=== PATIENT | male | born 1955 | race Two or more races ===

== ENCOUNTER 2021-10-10 12:13 | Emergency (ER) | payer MEDICARE, OTHER ==
[~2021-10-10] VITALS: Ht 180.3 cm; Wt 100.2 kg
[2021-10-10] MEDS ORDERED: ACETAMINOPHEN 500 MG TAB PO ONE (12:30)
[2021-10-10] MEDS ORDERED: cefTRIAXone SOD 1,000 MG VL IM ONE (14:00)
[2021-10-10 14:26] VITALS: BP 99/68
== END 2021-10-10 14:43 | disposition home or self-care (01) ==
LOC: ER 12:13
DX: U07.1 COVID-19 (principal); J12.82 Pneumonia due to coronavirus disease 2019
CPT/HCPCS: 71045; 96372; 99285; J0696

== ENCOUNTER 2021-10-13 09:44 | Inpatient (IN) | payer MEDICARE ==
[~2021-10-13] VITALS: Ht 182.9 cm; Wt 105.4 kg
[2021-10-13] MEDS ORDERED: AZITHROMYCIN 500MG/ 250ML 250 ML IV ONE (10:15)
[2021-10-13] MEDS ORDERED: DexAMETHasone SOD PHOS 10MG/1ML VIAL INJ IV ONE (10:15)
[2021-10-13] MEDS ORDERED: cefTRIAXone 1GM/50ML D5W 50 ML IV ONE (10:15)
[2021-10-13 10:29] LABS: Basophils # (auto) 0 10 ^3/uL (0-0.2); Basophils % (auto) 1.1 % (0.0-2.0); Eosinophils # (auto) 0 10 ^3/uL (0-0.8); Eosinophils % (auto) 0.2 % (0.0-7.0); Hematocrit 42.8 % (41.0-53.0); Hemoglobin 13.4 g/dL (13.5-17.5); Lymphocytes # (auto) 0.6 10 ^3/uL (0.4-5.4); Mean Corpuscular Hemoglobin 24.6 pg (28.0-32.0); Mean Corpuscular Hgb Conc. 31.4 g/dL (32.0-36.0); Mean Corpuscular Volume 78.4 fL (80.0-100.0); Monocytes # (auto) 0.2 10 ^3/uL (0-1.3); Monocytes % (auto) 5.5 % (0.0-12.0); Neutrophils # (auto) 2.9 10 ^3/uL (1.6-8.6); Neutrophils % (auto) 76.2 % (37.0-80.0); Nucleated Red Blood Cells % 0.3 %; Red Blood Cells 5.46 10^6/uL (4.5-5.90); Red Cell Distribution Width 16.7 % (11.8-14.3); White Blood Cell 3.8 10^3/uL (4.4-10.8)
[2021-10-13 10:54] LABS: Calcium 7.9 mg/dL (8.5-10.1)
[2021-10-13 10:56] LABS: BUN/Creatinine Ratio 19.4; Bilirubin, Total 0.6 mg/dL (0.2-1.0); Total Protein 6.7 g/dL (6.4-8.2)
[2021-10-13] MEDS ORDERED: HYDROcodone-ACET 5/325MG TAB PO PRN (14:30)
[2021-10-13] MEDS ORDERED: ONDANSETRON HCL 4 MG/2 ML VIAL IV PRN (14:30)
[2021-10-13] MEDS ORDERED: LORazepam 0.5 MG TAB PO PRN (14:30)
[2021-10-13] MEDS ORDERED: ACETAMINOPHEN 325 MG TAB PO PRN (14:30)
[2021-10-13] MEDS ORDERED: NITROGLYCERIN 0.4 MG SL TAB SL PRN (14:30)
[2021-10-13] MEDS ORDERED: DOCUSATE SOD 100 MG CAP PO PRN (14:30)
[2021-10-13] MEDS ORDERED: MORPHINE SULFATE INJECTION 2 MG/ML SYRG IV PRN ×2 (14:30)
[2021-10-13] MEDS: SODIUM CHLORIDE 0.9% 1,000 ML IV SCH ×3 (14:42→23:00)
[2021-10-13 15:55] LABS: Cholesterol 84 mg/dL (< 200)
[2021-10-13 15:58] LABS: HDL Cholesterol 40 mg/dL (40-59); LDL Cholesterol 39 mg/dL (< 100); Triglycerides 56 mg/dL (< 150)
[2021-10-13] MEDS: BUDESONIDE (INHALATION) 0.5 MG/2 ML NEB NEB SCH (22:00)
[2021-10-13] MEDS: ENOXAPARIN SOD 40 MG/0.4 ML SYRINGE SC SCH (22:00)
[2021-10-13 22:35] VITALS: BP 126/76
[2021-10-13] MEDS ORDERED: AZIT500T66 PO (23:28)
[2021-10-13] MEDS ORDERED: BENZ200C64 PO (23:28)
[2021-10-14 01:12] LABS: Urine Bacteria FEW /hpf (None Seen); Urine Blood Negative /uL (Negative); Urine Mucus FEW (None Seen); Urine Specific Gravity 1.028 (1.001-1.035); Urine WBC 4 /hpf (0 - 3)
[2021-10-14 05:04] VITALS: BP 123/77
[2021-10-14 05:44] LABS: Hemoglobin 12.2 g/dL (13.5-17.5); White Blood Cell 4.7 10^3/uL (4.4-10.8)
[2021-10-14 05:48] LABS: Basophils # (auto) 0 10 ^3/uL (0-0.2); Basophils % (auto) 0.2 % (0.0-2.0); Eosinophils # (auto) 0 10 ^3/uL (0-0.8); Hematocrit 37.7 % (41.0-53.0); Lymphocytes # (auto) 0.6 10 ^3/uL (0.4-5.4); Lymphocytes % (auto) 12.5 % (10.0-50.0); Mean Corpuscular Hemoglobin 25.1 pg (28.0-32.0); Mean Corpuscular Hgb Conc. 32.3 g/dL (32.0-36.0); Mean Corpuscular Volume 77.5 fL (80.0-100.0); Monocytes # (auto) 0.3 10 ^3/uL (0-1.3); Monocytes % (auto) 7.2 % (0.0-12.0); Neutrophils # (auto) 3.8 10 ^3/uL (1.6-8.6); Neutrophils % (auto) 80.1 % (37.0-80.0); Nucleated Red Blood Cells % 0.1 %; Red Blood Cells 4.86 10^6/uL (4.5-5.90); Red Cell Distribution Width 16.7 % (11.8-14.3)
[2021-10-14 06:03] LABS: Potassium 4.4 mmol/L (3.5-5.1)
[2021-10-14 06:10] LABS: Albumin 2.6 g/dL (3.4-5.0); BUN/Creatinine Ratio 28.4; Calcium 7.9 mg/dL (8.5-10.1)
[2021-10-14 06:13] LABS: Bilirubin, Total 0.4 mg/dL (0.2-1.0); Total Protein 5.9 g/dL (6.4-8.2)
[2021-10-14] MEDS: ALBUTEROL SULF 2.5 MG/0.5ML(0.5%) NEB SOLN NEB PRN ×2 (06:50→23:07)
[2021-10-14] MEDS: BUDESONIDE (INHALATION) 0.5 MG/2 ML NEB NEB SCH ×2 (06:50→23:07)
[2021-10-14] MEDS: IPRATROPIUM BROM 0.5 MG/2.5ML INH SOL NEB PRN ×2 (06:50→23:07)
[2021-10-14 08:00] VITALS: BP 138/75
[2021-10-14 09:00] VITALS: BP 138/75
[2021-10-14] MEDS: cefTRIAXone 1GM/50ML D5W 50 ML IV SCH (09:58)
[2021-10-14] MEDS: ASCORBIC ACID 500 MG TAB PO SCH (09:59)
[2021-10-14] MEDS: CHOLECALCIFEROL (VITD3) 2,000 UNIT CAP/TAB PO SCH (09:59)
[2021-10-14] MEDS: ZINC SULFATE 220mg CAP or TAB PO SCH (10:00)
[2021-10-14] MEDS: ENOXAPARIN SOD 40 MG/0.4 ML SYRINGE SC SCH ×2 (10:02→22:01)
[2021-10-14] MEDS: AZITHROMYCIN 500MG/ 250ML 250 ML IV SCH (10:52)
[2021-10-14] MEDS ORDERED: REMDESIVIR PER PHARMACY 0 ML IV SCH (11:30)
[2021-10-14] MEDS ORDERED: DexAMETHasone SOD PHOS 10MG/1ML VIAL INJ IV ONE (11:30)
[2021-10-14 13:00] VITALS: BP 125/69
[2021-10-14] MEDS ORDERED: REMDESIVIR 200 MG in NS 210ml LOADING DOSE ADULT IV ONE (15:00)
[2021-10-14 17:00] VITALS: BP 138/75
[2021-10-14] MEDS ORDERED: guaiFENesin-DM 100/10mg/5ml SYR PO PRN (20:15)
[2021-10-14 22:00] VITALS: BP 127/61
[2021-10-15 05:00] VITALS: BP 138/68
[2021-10-15 06:11] LABS: Basophils # (auto) 0 10 ^3/uL (0-0.2); Eosinophils # (auto) 0 10 ^3/uL (0-0.8); Lymphocytes # (auto) 0.5 10 ^3/uL (0.4-5.4); Mean Corpuscular Volume 76.7 fL (80.0-100.0); Monocytes # (auto) 0.4 10 ^3/uL (0-1.3); Neutrophils # (auto) 3.8 10 ^3/uL (1.6-8.6)
[2021-10-15 06:14] LABS: Basophils % (auto) 0.2 % (0.0-2.0); Hematocrit 34.9 % (41.0-53.0); Hemoglobin 11.7 g/dL (13.5-17.5); Lymphocytes % (auto) 10.4 % (10.0-50.0); Mean Corpuscular Hemoglobin 25.6 pg (28.0-32.0); Mean Corpuscular Hgb Conc. 33.4 g/dL (32.0-36.0); Monocytes % (auto) 8.2 % (0.0-12.0); Neutrophils % (auto) 81.2 % (37.0-80.0); Red Blood Cells 4.55 10^6/uL (4.5-5.90); Red Cell Distribution Width 16.4 % (11.8-14.3); White Blood Cell 4.6 10^3/uL (4.4-10.8)
[2021-10-15 06:33] LABS: Albumin 2.6 g/dL (3.4-5.0); Calcium 7.9 mg/dL (8.5-10.1); Potassium 4.5 mmol/L (3.5-5.1)
[2021-10-15 06:36] LABS: BUN/Creatinine Ratio 31.6
[2021-10-15 06:37] LABS: Bilirubin, Total 0.3 mg/dL (0.2-1.0); Total Protein 5.9 g/dL (6.4-8.2)
[2021-10-15 09:00] VITALS: BP 129/73
[2021-10-15] MEDS: IPRATROPIUM BROM 0.5 MG/2.5ML INH SOL NEB PRN ×2 (09:42→22:05)
[2021-10-15] MEDS: ALBUTEROL SULF 2.5 MG/0.5ML(0.5%) NEB SOLN NEB PRN ×2 (09:42→22:05)
[2021-10-15] MEDS: BUDESONIDE (INHALATION) 0.5 MG/2 ML NEB NEB SCH ×2 (09:43→22:05)
[2021-10-15] MEDS: cefTRIAXone 1GM/50ML D5W 50 ML IV SCH (09:47)
[2021-10-15] MEDS: ASCORBIC ACID 500 MG TAB PO SCH (09:54)
[2021-10-15] MEDS: ZINC SULFATE 220mg CAP or TAB PO SCH (09:55)
[2021-10-15] MEDS: CHOLECALCIFEROL (VITD3) 2,000 UNIT CAP/TAB PO SCH (09:55)
[2021-10-15] MEDS: FUROSEMIDE 20 MG TAB PO SCH (09:56)
[2021-10-15] MEDS: ENOXAPARIN SOD 40 MG/0.4 ML SYRINGE SC SCH ×2 (10:00→21:24)
[2021-10-15] MEDS: DexAMETHasone SOD PHOS 10MG/1ML VIAL INJ IV SCH (10:02)
[2021-10-15] MEDS: AZITHROMYCIN 500MG/ 250ML 250 ML IV SCH (11:00)
[2021-10-15 13:00] VITALS: BP 137/83
[2021-10-15] MEDS: REMDESIVIR 100mg 100 MG in SODIUM CHL 0.9% 230 ML IV SCH (15:02)
[2021-10-15 16:54] VITALS: BP 118/74
[2021-10-15 21:30] VITALS: BP 125/78
[2021-10-16 04:43] VITALS: BP 121/70
[2021-10-16] MEDS: IPRATROPIUM BROM 0.5 MG/2.5ML INH SOL NEB PRN (06:20)
[2021-10-16] MEDS: BUDESONIDE (INHALATION) 0.5 MG/2 ML NEB NEB SCH ×2 (06:20→20:24)
[2021-10-16] MEDS: ALBUTEROL SULF 2.5 MG/0.5ML(0.5%) NEB SOLN NEB PRN ×2 (06:20→20:24)
[2021-10-16 07:18] LABS: Albumin 2.5 g/dL (3.4-5.0); BUN/Creatinine Ratio 26.3; Calcium 7.7 mg/dL (8.5-10.1); Potassium 4.4 mmol/L (3.5-5.1)
[2021-10-16 07:20] LABS: Bilirubin, Total 0.3 mg/dL (0.2-1.0); Total Protein 5.4 g/dL (6.4-8.2)
[2021-10-16 09:00] VITALS: BP 120/63
[2021-10-16] MEDS: ENOXAPARIN SOD 40 MG/0.4 ML SYRINGE SC SCH ×2 (10:00→20:49)
[2021-10-16] MEDS: CHOLECALCIFEROL (VITD3) 2,000 UNIT CAP/TAB PO SCH (10:46)
[2021-10-16] MEDS: cefTRIAXone 1GM/50ML D5W 50 ML IV SCH (10:46)
[2021-10-16] MEDS: ASCORBIC ACID 500 MG TAB PO SCH (10:46)
[2021-10-16] MEDS: ZINC SULFATE 220mg CAP or TAB PO SCH (10:46)
[2021-10-16] MEDS: DexAMETHasone SOD PHOS 10MG/1ML VIAL INJ IV SCH (10:46)
[2021-10-16] MEDS: FUROSEMIDE 20 MG TAB PO SCH (10:49)
[2021-10-16] MEDS: AZITHROMYCIN 500MG/ 250ML 250 ML IV SCH (12:31)
[2021-10-16 13:00] VITALS: BP 115/73
[2021-10-16] MEDS: REMDESIVIR 100mg 100 MG in SODIUM CHL 0.9% 230 ML IV SCH (15:14)
[2021-10-16 17:00] VITALS: BP 130/68
[2021-10-16 22:00] VITALS: BP 126/70
[2021-10-17 05:00] VITALS: BP 118/70
[2021-10-17 06:48] LABS: Albumin 2.4 g/dL (3.4-5.0); Calcium 7.5 mg/dL (8.5-10.1); Potassium 4.3 mmol/L (3.5-5.1)
[2021-10-17 06:53] LABS: BUN/Creatinine Ratio 23.7; Bilirubin, Total 0.4 mg/dL (0.2-1.0); Total Protein 5.5 g/dL (6.4-8.2)
[2021-10-17] MEDS: BUDESONIDE (INHALATION) 0.5 MG/2 ML NEB NEB SCH ×2 (08:01→23:08)
[2021-10-17 08:45] VITALS: BP 122/68
[2021-10-17] MEDS: cefTRIAXone 1GM/50ML D5W 50 ML IV SCH (08:55)
[2021-10-17] MEDS: DexAMETHasone SOD PHOS 10MG/1ML VIAL INJ IV SCH (08:55)
[2021-10-17] MEDS: ZINC SULFATE 220mg CAP or TAB PO SCH (08:56)
[2021-10-17] MEDS: CHOLECALCIFEROL (VITD3) 2,000 UNIT CAP/TAB PO SCH (08:56)
[2021-10-17] MEDS: FUROSEMIDE 20 MG TAB PO SCH (08:56)
[2021-10-17] MEDS: ASCORBIC ACID 500 MG TAB PO SCH (08:56)
[2021-10-17] MEDS: ENOXAPARIN SOD 40 MG/0.4 ML SYRINGE SC SCH ×2 (08:56→22:50)
[2021-10-17] MEDS: AZITHROMYCIN 500MG/ 250ML 250 ML IV SCH (13:06)
[2021-10-17 13:35] VITALS: BP 149/77
[2021-10-17] MEDS: REMDESIVIR 100mg 100 MG in SODIUM CHL 0.9% 230 ML IV SCH (15:15)
[2021-10-17 17:03] VITALS: BP 115/72
[2021-10-17 21:58] VITALS: BP 125/66
[2021-10-17] MEDS: ALBUTEROL SULF 2.5 MG/0.5ML(0.5%) NEB SOLN NEB PRN (23:08)
[2021-10-17] MEDS: IPRATROPIUM BROM 0.5 MG/2.5ML INH SOL NEB PRN (23:08)
[2021-10-18 05:10] VITALS: BP 123/74
[2021-10-18] MEDS: ALBUTEROL SULF 2.5 MG/0.5ML(0.5%) NEB SOLN NEB PRN ×2 (05:40→07:52)
[2021-10-18] MEDS: BUDESONIDE (INHALATION) 0.5 MG/2 ML NEB NEB SCH ×2 (05:40→07:51)
[2021-10-18 05:50] LABS: Albumin 2.4 g/dL (3.4-5.0); BUN/Creatinine Ratio 25.3; Calcium 8.1 mg/dL (8.5-10.1); Potassium 4.4 mmol/L (3.5-5.1)
[2021-10-18 05:53] LABS: Bilirubin, Total 0.5 mg/dL (0.2-1.0); Total Protein 5.4 g/dL (6.4-8.2)
[2021-10-18 07:31] VITALS: BP 128/71
[2021-10-18] MEDS: IPRATROPIUM BROM 0.5 MG/2.5ML INH SOL NEB PRN (07:52)
[2021-10-18] MEDS ORDERED: FUR20T PO (08:11)
[2021-10-18] MEDS ORDERED: ASCO500T11 PO (08:11)
[2021-10-18] MEDS ORDERED: RIVA10TA PO (08:11)
[2021-10-18] MEDS ORDERED: CHOL1CAP47 PO (08:11)
[2021-10-18] MEDS ORDERED: ZINC220T6 PO (08:11)
[2021-10-18] MEDS ORDERED: DEXT1SYP9 PO (08:11)
[2021-10-18] MEDS ORDERED: DEX4T PO (08:11)
[2021-10-18 08:49] VITALS: BP 128/71
[2021-10-18] MEDS: cefTRIAXone 1GM/50ML D5W 50 ML IV SCH (10:27)
[2021-10-18] MEDS: ENOXAPARIN SOD 40 MG/0.4 ML SYRINGE SC SCH (10:27)
[2021-10-18] MEDS: CHOLECALCIFEROL (VITD3) 2,000 UNIT CAP/TAB PO SCH (10:28)
[2021-10-18] MEDS: ASCORBIC ACID 500 MG TAB PO SCH (10:28)
[2021-10-18] MEDS: ZINC SULFATE 220mg CAP or TAB PO SCH (10:28)
[2021-10-18] MEDS: DexAMETHasone SOD PHOS 10MG/1ML VIAL INJ IV SCH (10:28)
[2021-10-18] MEDS: FUROSEMIDE 20 MG TAB PO SCH (10:36)
[2021-10-18] MEDS: AZITHROMYCIN 500MG/ 250ML 250 ML IV SCH (11:37)
[2021-10-18 13:00] VITALS: BP 121/64
[2021-10-18] MEDS: REMDESIVIR 100mg 100 MG in SODIUM CHL 0.9% 230 ML IV SCH (14:43)
[2021-10-18 16:02] VITALS: BP 121/64
[2021-10-18 17:00] VITALS: BP 136/71
== END 2021-10-18 17:00 | disposition home or self-care (01) | DRG 177 ==
LOC: ER 09:44 → TELE 14:20 → TELE-EAST 22:34
PROVIDERS: ADMIT Family Medicine; ATTEND Internal Medicine
PROC: XW033E5 Introduction of Remdesivir Anti-infective into Peripheral Vein, Percutaneous Approach, New Technology Group 5 (ICD-10-PCS; principal; 2021-10-14)
DX: U07.1 COVID-19 (principal); J12.82 Pneumonia due to coronavirus disease 2019; J96.01 Acute respiratory failure with hypoxia; E66.9 Obesity, unspecified; E88.09 Other disorders of plasma-protein metabolism, not elsewhere classified; D89.839 Cytokine release syndrome, grade unspecified; Z68.30 Body mass index [BMI] 30.0-30.9, adult
CPT/HCPCS: 36415; 71045; 80053; 80061; 81001; 82728; 83036; 83615; 84443; 84484; 85025; 85379; 86141; 87040; 87426; 93005; 94640; 96372; G0378; J0696; J1100; J2405

== ENCOUNTER 2024-11-20 07:34 | Emergency (ER) | payer BC, MEDICARE, OTHER ==
[~2024-11-20] VITALS: Ht 180.3 cm; Wt 104.1 kg
[~2024-11-20 07:34] MED LIST: ASCO500T11 PO; BENZ200C64 PO; CHOL1CAP47 PO; DEX4T PO; DEXT1SYP9 PO; FURO20TA4 PO; RIVA10TA PO; ZINC220T6 PO
[2024-11-20 08:31] VITALS: BP 149/89; PULSE 96; RESP 18; TEMP 98.2; O2SAT 98
--- NOTE | 2024-11-20 08:34 | ED.PDOC ---
History of Present Illness HPI Comments This is a 68 year old male with swelling to his nose that started Thursday. Thought it was a pimple, tried to squeeze it, nothing came out, now with increased redness, pain and swelling. No drainage noted.no fever, no headache, no chills. Chief Complaint: Face pain Time Seen by MD: 08:28 Primary Care Provider: malissa Jackson Notes: Nurses Notes, Medications, Allergies Allergies: Coded Allergies: NO KNOWN ALLERGIES (Unverified , 09/18/10) Home Meds Active Scripts Rivaroxaban (XARELTO) 10 Mg Tab, 1 TAB PO DAILY, #30 TAB for DVT prophylaxis after COVID, watch for signs of bleeding Prov:FAY ORTEGA MD 10/18/21 Dexamethasone (Decadron) 4 Mg Tb, 6 MG PO DAILY for 4 Days, #6 TAB Prov:FAY ORTEGA MD 10/18/21 Zinc Sulfate (Zinc Sulfate) 220 Mg Tab, 220 MG PO DAILY for 30 Days, #30 TAB Prov:FAY ORTEGA MD 10/18/21 Furosemide (Furosemide) 20 Mg Tab, 20 MG PO DAILY for 5 Days, #5 TAB Prov:FAY ORTEGA MD 10/18/21 Dextromethorphan-Guaifenesin (Robitussin-Dm) 10 Ml Sr, 10 ML PO Q4HP PRN, #200 ML Prov:FAY ORTEGA MD 10/18/21 Cholecalciferol (Vitamin D3 Super Strength) 2,000 Unit Cap, 4000 UNIT PO DAILY for 30 Days, #60 CAP Prov:FAY ORTEGA MD 10/18/21 Ascorbic Acid (VITAMIN C TABLET) 500 Mg Tb, 500 MG PO DAILY for 30 Days, #30 TAB Prov:FAY ORTEGA MD 10/18/21 Reported Medications Benzonatate (Benzonatate) 200 Mg Cap, 1 CAP PO TID 10/13/21 Information Source: Patient Mode of Arrival: Ambulatory Past Medical History PAST MEDICAL HISTORY: Denies Past Medical History (Other): colon cancer Surgical History: Denies all surgeries Surgical History (Other): Colon resection Family History Family History: Reviewed,noncontributory to illness Social History Smoker: Non-Smoker Alcohol: Denies ETOH Use Drugs: Denies Drug Use Lives In: Home EENTM: reports: nose pain, others (nasal redness and swelling) Physical Exam General Appearance: No Apparent Distress HEENT: PERRL/EOMI, Pharyngeal Erythema, Pharynx Normal, NOT DONE (nose with swelling and redness, no drainage) Neck: Non-Tender, Normal Inspection, Supple Respiratory: Lungs Clear Cardiovascular: Regular Rate/Rhythm Breast Exam: Deferred Gastrointestinal: Non Tender, Soft Genitalia: Deferred Pelvic: Deferred Rectal: Deferred Extremities: Normal inspection, Normal range of motion, Non-tender Neurologic: Alert, No Motor Deficits, Normal Affect, Normal Mood Cerebellar Function: Normal Reflexes: NOT DONE Skin: Dry, Warm Lymphatic: No Adenopathy Was a procedure done? Was a procedure done?: No Differential Dx Considerations may include: cellulitis vs abcess X-Ray, Labs, Meds, VS Vital Signs Date Time Temp Pulse Resp B/P (MAP) Pulse Ox O2 Delivery O2 Flow Rate FiO2 11/20/24 08:31 96 18 98 Room Air 11/20/24 08:31 98.2 96 18 149/89 (109) 98 98.2 11/20/24 07:48 98.2 98 18 149/89 (109) 96 X-Ray, Labs, Meds, VS Comment Patient seen and examined by me. With cellulitis of the nose. Will give Rocephin here and send home with Bactrim DS. Instructed to apply heat to help drain. No indication to drain here in the ER. If redness and swelling are worse he will need to come back for IV antibiotics. Time of 1ST Reevaluation: 08:54 Reevaluation 1ST: Improved Patient Education/Counseling: Diagnosis, Treatment, Prognosis, Need For Follow Up Family Education/Counseling: Diagnosis, Treatment, Prognosis, Need For Follow Up Departure 1 Departure Time of Disposition: 08:54 Impression: Primary Impression: Cellulitis of nose Disposition: 01 HOME / SELF CARE / HOMELESS Condition: Good Additional Instructions: Start antibiotics in the morning Okay to apply heat to help drain If you notice increased redness or swelling after meds have started come back you will need IV antibiotics Motrin okay of pain e-Prescriptions Ibuprofen Micronized (Ibuprofen) 600 Mg Tab 600 MG PO Q6HPRN PRN for 5 Days, #20 TAB Prov: CHRYSTAL MCCAIN METHODS ANALYST 11/20/24 Sulfamethoxazole W/Trimethopri (Bactrim Ds Tablet) 1 Tab Tb 1 TAB PO BID for 7 Days, #14 TAB Prov: CHRYSTAL MCCAIN 11/20/24 Critical Care Note Critical Care Time?: No Stability Stability form required: No CHRYSTAL MCCAIN Nov 20, 2024 08:34
[2024-11-20] MEDS: cefTRIAXone W LIDOCAINE 1 GM IM IM ONE (08:44)
[2024-11-20] MEDS: cefTRIAXone SOD 1,000 MG VL IM ONE (08:52)
[2024-11-20] MEDS ORDERED: IBUP1TAB5 PO (08:57)
[2024-11-20] MEDS ORDERED: BACDST PO (08:57)
== END 2024-11-20 09:04 | disposition home or self-care (01) ==
LOC: ER 07:34
DX: J34.0 Abscess, furuncle and carbuncle of nose (principal); Z85.038 Personal history of other malignant neoplasm of large intestine
CPT/HCPCS: 96372; 99283; J0696

== ENCOUNTER 2024-12-15 11:40 | Emergency (ER) | payer OTHER ==
[~2024-12-15] VITALS: Ht 180.3 cm; Wt 106.7 kg
[~2024-12-15 11:40] MED LIST changes: +BACDST PO; +IBUP1TAB5 PO
[2024-12-15 12:35] VITALS: BP 153/100; PULSE 100; RESP 18; TEMP 98; O2SAT 96
--- NOTE | 2024-12-15 13:02 | ED.PDOC ---
History of Present Illness(SKN HPI Comments A 68 YEAR OLD MALE PRESENTS TO THE ED WITH CHIEF COMPLAINT OF REDNESS OF NOSE. PATIENT REPORTS THAT HE HAS BEEN EXPERIENCING SPONTANEOUS REDNESS, SWELLING, AND PAIN OF HIS NOSE SINCE YESTERDAY. PATIENT RELAYS THAT HE HAD SIMILAR SYMPTOMS ON 11/20/24 AND WAS DIAGNOSED WITH A SKIN INFECTION OF THE NOSE, NEEDING ANTIBIOTICS AT HOME TO TREAT IT, BUT NOW IT IS COMING BACK. PATIENT DENIES ANY DISCHARGE, BLEEDING, FACIAL PAIN, DIZZINESS, OR HEADACHE. Chief Complaint: Rash Time Seen by MD: 12:58 Primary Care Provider: JOEL History of Present Illness: Nurses Notes, Medications, Allergies Allergies: Coded Allergies: NO KNOWN ALLERGIES (Unverified , 09/18/10) Home Meds Active Scripts Ibuprofen Micronized (Ibuprofen) 600 Mg Tab, 600 MG PO Q6HPRN PRN for 5 Days, #20 TAB Prov:CHRYSTAL MCCAIN RECONCILIATION COORDINATOR 11/20/24 Sulfamethoxazole W/Trimethopri (Bactrim Ds Tablet) 1 Tab Tb, 1 TAB PO BID for 7 Days, #14 TAB Prov:CHRYSTAL MCCAIN [facility] 11/20/24 Rivaroxaban (XARELTO) 10 Mg Tab, 1 TAB PO DAILY, #30 TAB for DVT prophylaxis after COVID, watch for signs of bleeding Prov:FAY ORTEGA MD 10/18/21 Dexamethasone (Decadron) 4 Mg Tb, 6 MG PO DAILY for 4 Days, #6 TAB Prov:FAY ORTEGA MD 10/18/21 Zinc Sulfate (Zinc Sulfate) 220 Mg Tab, 220 MG PO DAILY for 30 Days, #30 TAB Prov:FAY ORTEGA MD 10/18/21 Furosemide (Furosemide) 20 Mg Tab, 20 MG PO DAILY for 5 Days, #5 TAB Prov:FAY ORTEGA MD 10/18/21 Dextromethorphan-Guaifenesin (Robitussin-Dm) 10 Ml Sr, 10 ML PO Q4HP PRN, #200 ML Prov:FAY ORTEGA MD 10/18/21 Cholecalciferol (Vitamin D3 Super Strength) 2,000 Unit Cap, 4000 UNIT PO DAILY for 30 Days, #60 CAP Prov:FAY ORTEGA MD 10/18/21 Ascorbic Acid (VITAMIN C TABLET) 500 Mg Tb, 500 MG PO DAILY for 30 Days, #30 TAB Prov:FAY ORTEGA MD 10/18/21 Reported Medications Benzonatate (Benzonatate) 200 Mg Cap, 1 CAP PO TID 10/13/21 Information Source: Patient Mode of Arrival: Ambulatory Severity: Moderate Timing: Days Duration: Since onset Prehospital treatment: None Location: Nose Mechanism: Spontaneous Onset Developed: Rash Object: None Condition of Object: None Retained Foreign Body: No Wound Type: Unknown Immunization Status of Animal: NA Tetanus: UTD, Unknown History of: None Associated Signs and Symptoms: Redness, Swelling, Pain Past Medical History PAST MEDICAL HISTORY: Denies Surgical History: Denies all surgeries Family History Family History: Reviewed,noncontributory to illness Social History Smoker: Non-Smoker Alcohol: Denies ETOH Use Drugs: Denies Drug Use Lives In: Home Constitutional: denies: chills, diaphoresis, fatigue, fever, malaise, sweats, weakness, others EENTM: reports: others (NOSE REDNESS AND SWELLING); denies: blurred vision, double vision, ear bleeding, ear discharge, ear drainage, ear pain, ear ringing, eye pain, eye redness, hearing loss, mouth pain, mouth swelling, nasal discharge, nose bleeding, nose congestion, nose pain, photophobia, tearing, throat pain, throat swelling, voice changes Respiratory: denies: cough, hemoptysis, orthopnea, SOB at rest, shortness of breath, SOB with excertion, stridor, wheezing, others Cardiovascular: denies: chest pain, dizzy spells, diaphoresis, Dyspnea on exertion, edema, irregular heart beat, left arm pain, lightheadedness, palpitations, PND, syncope, others Gastrointestinal: denies: abdomen distended, abdominal pain, blood streaked bowels, constipated, diarrhea, dysphagia, difficulty swallowing, hematemesis, melena, nausea, poor appetite, poor fluid intake, rectal bleeding, rectal pain, vomiting, others Genitourinary: denies: burning, dysuria, flank pain, frequency, hematuria, incontinence, penile discharge, penile sore, pain, testicle pain, testicle swelling, urgency, others Neurological: denies: dizziness, fainting, headache, left sided numbness, left sided weakness, numbness, paresthesia, pre-existing deficit, right sided numbness, right sided weakness, seizure, speech problems, tingling, tremors, weakness, others Musculoskeletal: denies: back pain, gout, joint pain, joint swelling, muscle pain, muscle stiffness, neck pain, others Integumetry: reports: lumps (ANTERIOR TIP OF NOSE. ); denies: bruises, change in color, change in hair/nails, dryness, laceration, lesions, rash, wounds, others Allergic/Immunocompromised: denies: Difficulty Healing, Frequent Infections, Hives, Itching, others Hematologic/Lymphatic: denies: anemia, blood clots, easy bleeding, easy bruising, swollen glands, others Endocrine: denies: excessive hunger, excessive sweating, excessive thirst, excessive urination, flushing, intolerance to cold, intolerance to heat, unexplained weight gain, unexplained weight loss, others Psychiatric: denies: anxiety, bipolar disorder, depression, hopeless, panic disorder, schizophrenia, sleepless, suicidal, others All Other Systems: Reviewed and Negative Physical Exam General Appearance: No Apparent Distress, Normal HEENT: Normal ENT Inspection, PERRL/EOMI, Other (REDNESS AND MILD SWELLING ON ANTERIOR NOSE TIP. ) Neck: Full Range of Motion, Non-Tender, Normal, Normal Inspection Respiratory: Chest Non-Tender, Lungs Clear, No Accessory Muscle Use, No Respiratory Distress, Normal Breath Sounds Cardiovascular: No Edema, No JVD, No Murmur, No Gallop, Normal Peripheral Pulses, Regular Rate/Rhythm Breast Exam: Deferred Gastrointestinal: No Organomegaly, Non Tender, No Pulsatile Mass, Normal Bowel Sounds, Soft Genitalia: Deferred Pelvic: Deferred Rectal: Deferred Extremities: No calf tenderness, Normal capillary refill, Normal inspection, Normal range of motion, Non-tender, No pedal edema Musculoskeletal : Apperance: Normal Neurologic: Alert, assistant executive housekeeper II-XII nml as Tested, No Motor Deficits, Normal Affect, Normal Mood, No Sensory Deficits Cerebellar Function: Normal Reflexes: Normal Skin: Dry, Warm, Other (A PIMPLE WITH LOCALIZED REDNESS, TENDERNESS AND MILD SWELLING ON ANTERIOR NOSE, NO OPEN WOUND SEEN. ) Peripheral Pulses: 2+ carotid (R), 2+ carotid (L) Lymphatic: No Adenopathy Was a procedure done? Was a procedure done?: No Differential Diagnosis (INTG) Differential Diagnosis: Abscess, Cellulitis Abscess: Felon, Other (SOFT TISSUE INFECTION OF NOSE ) X-Ray, Labs, Meds, VS Vital Signs Date Time Temp Pulse Resp B/P (MAP) Pulse Ox O2 Delivery O2 Flow Rate FiO2 12/15/24 12:35 100 18 96 Room Air 12/15/24 12:35 98.0 100 18 153/100 (117) 96 98.0 12/15/24 11:56 98.0 100 18 153/100 (117) 96 151/101 (118) Current Medications Medications (Trade) Dose Ordered Sig/Devin Route Start Time Stop Time Status Last Admin Ceftriaxone Sodium (Rocephin) 1,000 mg ONCE ONCE IM 12/15/24 13:00 12/15/24 13:01 DC 12/15/24 13:09 X-Ray, Labs, Meds, VS Comment EXTERNAL MEDICAL RECORDS REVIEWED: 11/20/24 FOR CELLULITIS OF NOSE INDEPENDENT HISTORIANS: [NONE] SOCIAL DETERMINANTS OF HEALTH: [NONE] LABS ORDERED: NONE REVIEWED AND INTERPRETED RESULTS: NONE IMAGING ORDERED: NONE TREATMENTS ORDERED: ROCEPHIN 1G IM PROCEDURES PERFORMED: NONE CRITICAL CARE TIME: NONE I HAVE DISCUSSED THE PATIENT WITH THE ATTENDING PHYSICIAN DR. ALCANTARA AND HE AGREES WITH THE PATIENT'S PLAN OF CARE AND DISPOSITION. BASED ON HISTORY OF PRESENT ILLNESS, AND PHYSICAL EXAM, PATIENT WILL BE DISCHARGED HOME. DISCUSSED PLAN FOR DISCHARGE HOME WITH RX BACTRIM. MEDICATION WARNINGS GIVEN. SHARED DECISION MAKING: DISCUSSED WITH PATIENT THAT THEIR WORKUP WAS NORMAL. PATIENT INSTRUCTED TO FOLLOW UP WITH PRIMARY CARE PROVIDER IN 1-2 DAYS FOR RE- EVALUATION OF SYMPTOMS. PATIENT VERBALIZES UNDERSTANDING TO RETURN TO ED FOR NEW OR WORSENING SYMPTOMS OR IF FOLLOW UP WITH PCP CANNOT BE OBTAINED. PATIENT FEELS COMFORTABLE GOING HOME AT THIS TIME. ALL QUESTIONS ADDRESSED AT TIME OF DISCHARGE. Time of 1ST Reevaluation: 13:20 Reevaluation 1ST: Unchanged Patient Education/Counseling: Diagnosis, Treatment, Need For Follow Up Family Education/Counseling: Diagnosis, Treatment, Need For Follow Up Medical Screening: No EMC Exist At This Time Departure 1 Departure Time of Disposition: 13:30 Impression: Primary Impression: Soft tissue infection Additional Impression: Skin pimple Disposition: 01 HOME / SELF CARE / HOMELESS Condition: Stable Additional Instructions: FOLLOW-UP WITH PCP IN 1 TO 2 DAYS. TAKE MEDICATIONS PRESCRIBED. RETURN TO ED FOR ANY NEW OR WORSENING SYMPTOMS. e-Prescriptions Ibuprofen (Ibuprofen) 600 Mg Tab 1 TAB PO TID, #30 TAB Prov: SAMI LUNA 12/15/24 Sulfamethoxazole W/Trimethopri (Bactrim Ds Tablet) 1 Tab Tb 1 TAB PO BID for 10 Days, #20 TAB Prov: SAMI LUNA 12/15/24 Discharged With: Self Critical Care Note Critical Care Time?: No Stability Stability form required: No Heart Score Heart Score: Heart Score Response (Comments) Value History N/A 0 EKG N/A 0 Age N/A 0 Risk Factors N/A 0 Troponin N/A 0 Total 0 I personally scribed for SAMI LUNA ([email or web address]) on 12/15/24 at 13:02. Electronically submitted by Miguel Yung ([email or web address]). I personally scribed for SAMI LUNA ([email or web address]) on 12/15/24 at 13:14. Electronically submitted by Miguel Yung ([email or web address]). SAMI LUNA Dec 15, 2024 13:02
[2024-12-15] MEDS: cefTRIAXone SOD 1,000 MG VL IM ONE (13:09)
[2024-12-15] MEDS ORDERED: BACDST PO (13:20)
[2024-12-15] MEDS ORDERED: IBUP-1454 PO (13:20)
== END 2024-12-15 13:28 | disposition home or self-care (01) ==
LOC: ER 11:40
DX: L08.9 Local infection of the skin and subcutaneous tissue, unspecified (principal); R23.8 Other skin changes; Z79.01 Long term (current) use of anticoagulants; Z79.52 Long term (current) use of systemic steroids; Z79.899 Other long term (current) drug therapy
CPT/HCPCS: 96372; 99283; J0696